=== PATIENT | female | born 1965 | race Caucasian/White ===

== ENCOUNTER 2018-09-04 17:16 | Emergency (ER) | payer SELFPAY ==
[~2018-09-04] VITALS: Ht 167.6 cm; Wt 113.4 kg
[2018-09-04 17:23] VITALS: BP_SYST 122
[2018-09-04 18:23] LABS: BASOPHILS # (AUTO) 0.1 K/uL (0.0-0.2); BASOPHILS % (AUTO) 1.1 % (0.0-2.0); EOSINOPHILS # (AUTO) 0.1 K/uL (0.0-0.4); EOSINOPHILS % (AUTO) 1.2 % (0.0-4.0); HEMATOCRIT 45.3 % (36-48); HEMOGLOBIN 14.5 g/dL (12.0-16.0); LYMPHOCYTES % (AUTO) 17.3 % (20.5-51.5); MEAN CORPUSCULAR HEMOGLOBIN 25 pg (27-31); MEAN CORPUSCULAR HGB CONC 32 % (32-36); MEAN CORPUSCULAR VOLUME 78 fL (79.0-98.0); MONOCYTES # (AUTO) 0.7 K/uL (0.0-1.0); MONOCYTES % (AUTO) 5.8 % (1.7-9.3); NEUTROPHILS # (AUTO) 8.6 K/uL (1.8-7.7); NEUTROPHILS % (AUTO) 74.6 % (40.0-70.0); PLATELET COUNT (AUTO) 365 K/uL (130-430); RED BLOOD CELL COUNT(AUTO) 5.82 MIL/uL (4.2-6.2); RED CELL DISTRIBUTION WIDTH 18.1 % (9.0-15.0); WHITE BLOOD COUNT (AUTO) 11.5 K/uL (4.8-10.8)
[2018-09-04 18:42] LABS: CALCIUM 9.2 mg/dL (8.4-11.0); CREATININE 0.65 mg/dL (0.55-1.30); POTASSIUM 3.6 mmol/L (3.5-5.1)
[2018-09-04 18:47] LABS: ALBUMIN 3.4 g/dL (3.4-4.8); TOTAL BILIRUBIN 0.4 mg/dL (0.0-1.0)
--- NOTE | 2018-09-04 18:56 | NUR ---
Patient to ER bed 4 to gown for evaluation. Side rails up.
--- NOTE | 2018-09-04 19:02 | NUR ---
Patient is awake, alert, and oriented x4. Patient states she slipped and fell in a restaurant bathroom today at 1530, back and back of head hit the door, butt hit the floor. Patient states she went home and started experiencing chest pain and SOB on exertion.
--- NOTE | 2018-09-04 19:13 | NUR ---
ER Dr. Love at bedside examining patient.
--- NOTE | 2018-09-04 19:50 | NUR ---
Pt feeling nauseous at this time. ER MD Dr. Simmons made aware.
[2018-09-04] MEDS ORDERED: ONDANSETRON 4 MG ODT TAB PO ONE (20:15)
--- NOTE | 2018-09-04 20:18 | NUR ---
Pt to CT at this time via wheelchair. No signs of acute distress or discomfort noted.
[2018-09-04] MEDS ORDERED: KETOROLAC TROMETHAMINE 30 MG VIAL IVP ONE (20:45)
[2018-09-04] MEDS ORDERED: MORPHINE 4 MG/ML INJ. SYRINGE IVP ONE (21:00)
[2018-09-04] MEDS ORDERED: DIPHENHYDRAMINE INJ 50 MG/ML VIAL IVP ONE (21:30)
--- NOTE | 2018-09-04 21:30 | NUR ---
Pt feeling itcy at this time. ER MD Dr. Simmons made aware, orders received, will carry out orders.
[2018-09-04 21:47] VITALS: BP_SYST 122
--- NOTE | 2018-09-04 21:47 | NUR ---
Patient given written and verbal discharge instructions and verbalizes understanding. ER MD Dr. Simmons discussed with patient the results and treatment provided. Patient in stable condition. ID arm band removed. IV catheter removed intact and dressing applied, no active bleeding. Rx of zofran and norco given. Patient educated on pain management and to follow up with PMD. Pain Scale 2/10. Opportunity for questions provided and answered. Medication side effect fact sheet provided.
== END 2018-09-04 21:47 | disposition home or self-care (01) ==
LOC: SED 17:16
DX: S00.03XA Contusion of scalp, initial encounter (principal); R07.89 Other chest pain; I48.91 Unspecified atrial fibrillation; I10 Essential (primary) hypertension; F17.200 Nicotine dependence, unspecified, uncomplicated; W01.198A Fall on same level from slipping, tripping and stumbling with subsequent striking against other object, initial encounter; Y93.89 Activity, other specified; Y92.89 Other specified places as the place of occurrence of the external cause; Y99.8 Other external cause status
CPT/HCPCS: 36415; 70450; 71045; 72125; 80053; 81025; 82550; 83880; 84484; 85025; 96374; 96375; 99284; J1200; J2270; Q0162; J1885